=== PATIENT | male | born 1950 | race Caucasian/White ===

== ENCOUNTER → 2018-12-23 17:55 | Outpatient (REF) | payer BC, MEDICARE, SELFPAY ==
[2018-01-11 12:51] VITALS: BMI 41.3
[2018-12-23 18:37] LABS: Vitamin D 25 Hydroxy (D3) 70.4 ng/mL (30.0-100.0)
[2018-12-23 19:07] LABS: Vitamin B12 909 pg/mL (239-931)
== END ==
LOC: LAB 17:55
PROVIDERS: Family Provider Physician Assistant Medical; PCP Physician Assistant Medical; Visit Provider Physician Assistant Medical
DX: K91.2 Postsurgical malabsorption, not elsewhere classified (principal); Z98.84 Bariatric surgery status
CPT/HCPCS: 36415; 82306; 82607